=== PATIENT | female | born 1955 | race Caucasian/White ===

== ENCOUNTER → 2017-08-19 10:16 | Outpatient (CLI) | payer BC | END | disposition home or self-care (01) | LOC: D.RAD 08-17 10:00 | DX: R11.2 Nausea with vomiting, unspecified (principal) ==

== ENCOUNTER → 2019-01-04 09:42 | Outpatient (CLI) | payer BC | END | disposition home or self-care (01) | LOC: D.CT 09:42 | PROVIDERS: ATTEND Internal Medicine Gastroenterology | DX: R10.11 Right upper quadrant pain (principal); R12 Heartburn ==

== ENCOUNTER → 2019-03-10 09:27 | Outpatient (CLI) | payer BC | END | disposition home or self-care (01) | LOC: D.NM 09:27 | PROVIDERS: ATTEND Internal Medicine Gastroenterology | DX: R12 Heartburn (principal); R10.13 Epigastric pain; K58.1 Irritable bowel syndrome with constipation ==